=== PATIENT | male | born 2000 | race Caucasian/White ===

== ENCOUNTER 2020-11-26 11:44 | Emergency (ER) | payer OTHER ==
[~2020-11-26] VITALS: Ht 175.3 cm; Wt 84.5 kg
[2020-11-26 13:45] LABS: CHLAMYDIA DNA AMPLIFICATION POSITIVE (NEGATIVE); GC DNA AMPLIFICATION POSITIVE (NEGATIVE)
[2020-11-26] MEDS ORDERED: DOXYCYCLINE HYCLATE 100MG TABLET PO ONE (14:00)
[2020-11-26] MEDS ORDERED: LIDOCAINE 1% SDV 5ML VIAL DILUENT ONE (14:00)
[2020-11-26] MEDS ORDERED: cefTRIAXone 500MG VIAL (J0696 PER 250MG) IM ONE (14:00)
[2020-11-26] MEDS ORDERED: DOXY100C37 PO (14:52)
[2020-11-26 15:18] VITALS: BP 164/95
[2020-11-26 16:40] LABS: HEPATITIS A ANTIBODY IGM NEGATIVE (NEGATIVE); HEPATITIS B CORE ANTIBODY IGM NEGATIVE (NEGATIVE); HEPATITIS B SURFACE ANTIGEN NEGATIVE (NEGATIVE); HIV SCREEN CENTAUR EXPOSED NEGATIVE (NEGATIVE)
[2020-11-29 14:10] LABS: HSV-1 DNA Negative (Negative); HSV-2 DNA Negative (Negative)
== END 2020-11-26 15:19 | disposition home or self-care (01) ==
LOC: M ED 11:44
DX: R36.9 Urethral discharge, unspecified (principal); A74.9 Chlamydial infection, unspecified; A54.9 Gonococcal infection, unspecified; Z88.2 Allergy status to sulfonamides
CPT/HCPCS: 81001; 86705; 86709; 86780; 86803; 87086; 87340; 87389; 87529; 87661; 96372; 99284; J0696